=== PATIENT | female | born 1995 | race Caucasian/White ===

== ENCOUNTER 2017-07-31 16:54 | Emergency (ER) | payer MEDICAID ==
[~2017-07-31] VITALS: Ht 170.2 cm; Wt 106.6 kg
[2017-07-31 16:55] VITALS: BP_SYST 151
[2017-07-31] MEDS ORDERED: NACL 0.9% 1,000 ML IV ONE (18:06)
[2017-07-31 18:18] LABS: BASOPHILS % (AUTO) 0.3 % (0.0-2.0); EOSINOPHILS # (AUTO) 0.2 K/uL (0.0-0.4); EOSINOPHILS % (AUTO) 2.1 % (0.0-4.0); HEMATOCRIT 41.2 % (36-48); HEMOGLOBIN 13.4 g/dL (12.0-16.0); LYMPHOCYTES # (AUTO) 2.6 K/uL (1.0-5.5); LYMPHOCYTES % (AUTO) 28.5 % (20.5-51.5); MEAN CORPUSCULAR HEMOGLOBIN 27 pg (27-31); MEAN CORPUSCULAR HGB CONC 33 % (32-36); MEAN CORPUSCULAR VOLUME 83 fL (79.0-98.0); MONOCYTES # (AUTO) 0.5 K/uL (0.0-1.0); MONOCYTES % (AUTO) 5.7 % (1.7-9.3); NEUTROPHILS # (AUTO) 5.9 K/uL (1.8-7.7); NEUTROPHILS % (AUTO) 63.4 % (40.0-70.0); PLATELET COUNT (AUTO) 237 K/uL (130-430); RED BLOOD CELL COUNT(AUTO) 4.95 MIL/uL (4.2-6.2); RED CELL DISTRIBUTION WIDTH 12.3 % (9.0-15.0); WHITE BLOOD COUNT (AUTO) 9.2 K/uL (4.8-10.8)
[2017-07-31 18:32] LABS: CALCIUM 8.7 mg/dL (8.4-11.0); CREATININE 0.86 mg/dL (0.55-1.30); POTASSIUM 3.7 mmol/L (3.5-5.1)
[2017-07-31 18:36] LABS: TOTAL BILIRUBIN 0.2 mg/dL (0.0-1.0)
[2017-07-31 18:43] LABS: BILIRUBIN,URINE NEGATIVE (NEGATIVE); CLARITY/URINE SL HAZY (CLEAR); COLOR,URINE YELLOW (YELLOW); GLUCOSE,URINE NEGATIVE (NEGATIVE); KETONES,URINE TRACE (NEGATIVE); LEUKOCYTE ESTERASE ,URINE NEGATIVE (NEGATIVE); NITRITE, URINE NEGATIVE (NEGATIVE); PROTEIN URINE NEGATIVE (NEGATIVE); UROBILINOGEN,URINE 0.2 (0.2-1.0)
[2017-07-31 18:44] LABS: BLOOD, URINE TRACE (NEGATIVE)
[2017-07-31 18:55] LABS: BACTERIA,URINE MODERATE /HPF (None Seen); RBC,URINE 0-3 /HPF (0-3); WBC,URINE 0-3 /HPF (0-3)
[2017-07-31 18:58] LABS: MUCUS,URINE 1+ /LPF (None Seen)
[2017-07-31] MEDS ORDERED: IBUPROFEN 800 MG TABLET PO ONE (19:15)
[2017-07-31] MEDS ORDERED: LEVOFLOXACIN 500 MG TABLET PO ONE (19:15)
[2017-07-31] MEDS ORDERED: PIPERACILLIN/TAZO 3.375 GM in NS 50 ML IV ONE (19:30)
[2017-07-31] MEDS ORDERED: PIPERACILLIN/TAZOBACTAM 3.375 GM/VIAL (ZOSYN) IV ONE (19:48)
[2017-07-31 21:05] VITALS: BP_SYST 144
== END 2017-07-31 21:05 | disposition home or self-care (01) ==
LOC: SED 16:54
DX: N71.9 Inflammatory disease of uterus, unspecified (principal); Z97.5 Presence of (intrauterine) contraceptive device
CPT/HCPCS: 36415; 74176; 76830; 76857; 80053; 81000; 81025; 83605; 83690; 85025; 87040; 87086; 96361; 96365; 99285; J2543; J7030

== ENCOUNTER 2017-08-02 16:13 | Emergency (ER) | payer MEDICAID ==
[~2017-08-02] VITALS: Ht 170.2 cm; Wt 104.3 kg
[2017-08-02 16:41] VITALS: BP_SYST 165
[2017-08-02 17:29] VITALS: BP_SYST 150
== END 2017-08-02 17:25 | disposition home or self-care (01) ==
LOC: SED 16:13
DX: R10.2 Pelvic and perineal pain (principal); R11.2 Nausea with vomiting, unspecified
CPT/HCPCS: 81025; 99283

== ENCOUNTER 2018-05-10 20:31 | Emergency (ER) | payer SELFPAY ==
[~2018-05-10] VITALS: Ht 170.2 cm; Wt 93.9 kg
[2018-05-10 20:36] VITALS: BP_SYST 150
--- NOTE | 2018-05-10 20:36 | NUR ---
Patient to ER bed 06 to gown for evaluation. Side rails up. Report given to BENITO Melendez
--- NOTE | 2018-05-10 20:38 | NUR ---
Patient AAO x4, sitting in bed c/o dizziness x 3 days intermittent q 3-5 min. Patient c/o nausea and vomiting, no vomiting at this time. GONZALEZ at this with c/o of "tingling" in left arm. No acute distress at this time. Denies chest pain and shortness of breath. Dizziness described as "room spinning" sensation when standing. Will continue to monitor. Side rails up at this.
--- NOTE | 2018-05-10 21:00 | NUR ---
DAKOTA Fish at bedside examining patient.
[2018-05-10] MEDS ORDERED: ONDANSETRON 4 MG ODT TAB PO ONE (21:15)
[2018-05-10] MEDS ORDERED: MECLIZINE HCL 25 MG TABLET (ANITVERT) PO ONE (21:15)
[2018-05-10 21:28] LABS: BASOPHILS % (AUTO) 0.3 % (0.0-2.0); EOSINOPHILS # (AUTO) 0.1 K/uL (0.0-0.4); HEMATOCRIT 34.2 % (36-48); HEMOGLOBIN 11.7 g/dL (12.0-16.0); LYMPHOCYTES # (AUTO) 2.7 K/uL (1.0-5.5); LYMPHOCYTES % (AUTO) 26.4 % (20.5-51.5); MEAN CORPUSCULAR HEMOGLOBIN 28 pg (27-31); MEAN CORPUSCULAR HGB CONC 34 % (32-36); MEAN CORPUSCULAR VOLUME 82 fL (79.0-98.0); MONOCYTES # (AUTO) 0.6 K/uL (0.0-1.0); MONOCYTES % (AUTO) 5.5 % (1.7-9.3); NEUTROPHILS # (AUTO) 6.7 K/uL (1.8-7.7); NEUTROPHILS % (AUTO) 66.8 % (40.0-70.0); PLATELET COUNT (AUTO) 210 K/uL (130-430); RED BLOOD CELL COUNT(AUTO) 4.15 MIL/uL (4.2-6.2); RED CELL DISTRIBUTION WIDTH 12.2 % (9.0-15.0); WHITE BLOOD COUNT (AUTO) 10.1 K/uL (4.8-10.8)
[2018-05-10 21:32] LABS: CALCIUM 8.5 mg/dL (8.4-11.0); CREATININE 0.86 mg/dL (0.55-1.30); POTASSIUM 3.4 mmol/L (3.5-5.1)
[2018-05-10 21:47] LABS: ALBUMIN 3.4 g/dL (3.4-4.8); THYROID STIMULATING HORMONE 0.87 uIu/mL (0.34-4.82); TOTAL BILIRUBIN 0.3 mg/dL (0.0-1.0)
--- NOTE | 2018-05-10 22:00 | NUR ---
Patient c/o 06/21 HA. HODGES notified.
[2018-05-10] MEDS ORDERED: KETOROLAC TROMETHAMINE 30 MG VIAL IM ONE (22:15)
[2018-05-10 22:37] VITALS: BP_SYST 134
--- NOTE | 2018-05-10 22:37 | NUR ---
Patient given written and verbal discharge instructions and verbalizes understanding. ER MD SELLERS discussed with patient the results and treatment provided. Patient in stable condition. ID arm band removed. IV catheter removed intact and dressing applied, no active bleeding. Rx of ZOFRAN given. Patient educated on pain management and to follow up with PMD. Pain Scale 0/10. Opportunity for questions provided and answered. Medication side effect fact sheet provided.
== END 2018-05-10 22:37 | disposition home or self-care (01) ==
LOC: SED 20:31
DX: R42 Dizziness and giddiness (principal); R03.0 Elevated blood-pressure reading, without diagnosis of hypertension
CPT/HCPCS: 36415; 80053; 81025; 84443; 85025; 93005; 96372; 99285; J1885; J8597; Q0162